=== PATIENT | male | born 1950 | race Caucasian/White ===

== ENCOUNTER 2018-09-21 08:04 | Emergency (ER) | payer MEDICARE, OTHER ==
[~2018-09-21] VITALS: Ht 177.8 cm; Wt 103.9 kg
[~2018-09-21 08:04] MED LIST: LOSA25TA96 PO
[2018-09-21 08:09] VITALS: BP 152/96
[2018-09-21] MEDS ORDERED: GABA-532 PO (08:56)
== END 2018-09-21 10:32 | disposition home or self-care (01) ==
LOC: ER 08:05
DX: M54.14 Radiculopathy, thoracic region (principal); I10 Essential (primary) hypertension; Z98.890 Other specified postprocedural states; Z88.8 Allergy status to other drugs, medicaments and biological substances; Z79.899 Other long term (current) drug therapy
CPT/HCPCS: 72074; 99283

== ENCOUNTER 2023-09-20 10:25 | Day surgery (SDC) | payer MEDICARE, OTHER ==
[~2023-09-20] VITALS: Ht 177.8 cm; Wt 90.9 kg
[2023-09-20] VITALS (9 sets, daily range): BP systolic 119–135; BP diastolic 53–71; PULSE 70–79; RESP 15–16; TEMP 99; O2SAT 94–98
[~2023-09-20 10:25] MED LIST changes: +ASPI-1397 PO; +ATOR20TA PO; +CARV3.122 PO; +CLOP75TA33 PO; +CLOP75TA34 PO; +EMPA10TA PO; +FURO20TA4 PO; -LOSA25TA96 PO; +METF-436 PO; +PANT40TA54 PO; +SACU1TAB PO; +SPIR25TA5 PO
[2023-09-20] MEDS ORDERED: cefazolin 2gm/D5W 100mL 100 ML IV ONE (11:15)
[2023-09-20 11:36] LABS: BASOPHILS % (AUTO) 0.7 % (0-1); EOSINOPHILS # (AUTO) 0.1 X10'3 (0-0.9); EOSINOPHILS % (AUTO) 2.2 % (0-6); HEMATOCRIT 39.3 % (42.0-52.0); LYMPHOCYTES % (AUTO) 23.9 % (21-51); MEAN CORPUSCULAR HGB CONC 33.2 g/dL (33.0-36.5); MEAN CORPUSCULAR VOLUME 90.2 FL (78-98); MEAN PLATELET VOLUME 6.7 FL (7.4-10.4); MONOCYTES # (AUTO) 0.4 X10'3 (0-0.9); MONOCYTES % (AUTO) 8.8 % (2-12); NEUTROPHILS # (AUTO) 2.7 X10'3 (1.8-7.7); NEUTROPHILS % (AUTO) 64.4 % (42-75); PLATELET COUNT 243 X10'3 (140-440); RED BLOOD COUNT 4.36 X10'6 (4.70-6.10); WHITE BLOOD COUNT 4.3 X10'3 (4.5-11.0)
[2023-09-20 11:45] LABS: ALBUMIN 3.7 G/DL (3.4-5.0); ANION GAP 12 (8-16); BLOOD UREA NITROGEN 19 MG/DL (7-18); BUN/CREATININE RATIO 27.1 (10.0-20.0); CALCIUM 9.1 MG/DL (8.5-10.1); CHLORIDE 104 MMOL/L (99-107); GLUCOSE 118 MG/DL (70-104); POTASSIUM 3.9 MMOL/L (3.5-5.1); SODIUM 140 MMOL/L (135-145); TOTAL CARBON DIOXIDE 24.1 MMOL/L (24-32); eCRCL 100 ML/MIN; eGFR > 90 ML/MIN
[2023-09-20 11:46] LABS: APTT 28 SECONDS (22-32)
[2023-09-20] MEDS ORDERED: LIDOcaine 1% w/EPI 1:100,000 inj. MDV 50 ML VIAL ONE (11:55)
[2023-09-20] MEDS ORDERED: vancomycin 1,000mg inj ONE (11:56)
[2023-09-20] MEDS ORDERED: fentaNYL/PF 50MCG/1 ML 2ML syringe ONE (11:56)
[2023-09-20] MEDS ORDERED: midazolam 1 mg/ML 2ml injection ONE ×2 (11:56→13:16)
[2023-09-20] MEDS ORDERED: vancomycin/NS 1 GM ADD-VANTAGE 250 ML X 1 DOSE IV ONE (15:00)
== END 2023-09-20 17:00 | disposition home or self-care (01) ==
LOC: SSTAY O 10:25
PROVIDERS: ATTEND Internal Medicine Cardiovascular Disease
DX: T82.120A Displacement of cardiac electrode, initial encounter (principal); I42.0 Dilated cardiomyopathy; I25.10 Atherosclerotic heart disease of native coronary artery without angina pectoris; Z95.5 Presence of coronary angioplasty implant and graft; Z79.899 Other long term (current) drug therapy; Z79.01 Long term (current) use of anticoagulants; Y83.8 Other surgical procedures as the cause of abnormal reaction of the patient, or of later complication, without mention of misadventure at the time of the procedure; Y92.89 Other specified places as the place of occurrence of the external cause
CPT/HCPCS: 33215; 36415; 71046; 80048; 82948; 85025; 85610; 85730; 93005; 99152; 99153; J2250; J3010; J3370; J3490; J7030; A4565; A6449